=== PATIENT | male | born 1965 | race Caucasian/White ===

== ENCOUNTER 2020-01-10 16:33 | Emergency (ER) | payer OTHER ==
--- NOTE | 2020-01-10 18:19 | ER Document Report ---
ED Medical Screen (RME) - General Chief Complaint: Headache Stated Complaint: SEVERE MIGRANE Time Seen by Provider: 01/10/20 18:16 Mode of Arrival: Ambulatory Information source: Patient Notes: 54-year-old male presented to ED for headache. He states he has had this headache for the last several days. He states he was given some migraine medicine that has butalbital and the name that he has been taking. He states he woke up this morning with a severe headache and then had a colonoscopy with Dr. Ferrer this morning. He states he never told Dr. Laruent that he had a headache but he did tell the nurse. He states nothing was done about the headache at that time. He states he went home took his migraine medicine and for ibuprofen since the colonoscopy. He states that the pain is still severe so he came to the emergency room. He states in 2006 he came to the emergency room for headache and while he was being worked up for his headache they discovered he was having an NM and shipped him to [facility]. Patient is alert oriented respirations regular nonlabored speaking in full sentences. His phone number is in the chart. I have greeted and performed a rapid initial assessment of this patient. A comprehensive ED assessment and evaluation of the patient, analysis of test results and completion of medical decision making process will be conducted by an additional ED providers. TRAVEL OUTSIDE OF THE [place] IN LAST 30 DAYS: No - Related Data Allergies/Adverse Reactions: No Known Allergies Allergy (Verified 06/23/14 08:14) Past Medical History - Past Medical History Cardiac Medical History: Reports: Hx Heart Attack, Hx Hypertension Pulmonary Medical History: Reports: Hx Bronchitis, Hx Pneumonia Renal/ Medical History: Denies: Hx Kidney Stones GI Medical History: Reports: Hx Gastroesophageal Reflux Disease, Hx Ulcer Musculoskeltal Medical History: Reports Hx Arthritis, Reports Hx Musculoskeletal Trauma - fall several years ago Past Surgical History: Reports: Hx Cholecystectomy - Immunizations Hx Diphtheria, Pertussis, Tetanus Vaccination: Yes - 2011 Physical Exam - Vital signs Vitals: Temp Pulse Resp BP Pulse Ox 98.5 F 81 18 159/93 H 96 01/10/20 17:45 01/10/20 17:45 01/10/20 17:45 01/10/20 17:45 01/10/20 17:45 Course - Vital Signs Vital signs: Temp Pulse Resp BP Pulse Ox 98.5 F 81 18 159/93 H 96 01/10/20 17:45 01/10/20 17:45 01/10/20 17:45 01/10/20 17:45 01/10/20 17:45
--- NOTE | 2020-01-10 18:38 | RADIOLOGY REPORT (SQ) ---
EXAM DESCRIPTION: CT HEAD WITHOUT IMAGES COMPLETED DATE/TIME: 01/10/2020 6:29 pm REASON FOR STUDY: Severe headache blurry vision nausea COMPARISON: 08/03/2007 TECHNIQUE: Axial images acquired through the brain without intravenous contrast. Images reviewed wi th bone, brain and subdural windows. Additional sagittal and coronal reconstructions were generated. Images stored on PACS. All CT scanners at this facility use dose modulation, iterative reconstruction, and/or weight based d osing when appropriate to reduce radiation dose to as low as reasonably achievable (ALARA). [facility]: Dose Right [facility]: CareDose [facility]: Dose Right [facility]: Teradose 4D [facility]: [employer] RADIATION DOSE: mGy. LIMITATIONS: None. FINDINGS: VENTRICLES: Normal size and contour. CEREBRUM: No masses. No hemorrhage. No midline shift. No evidence for acute infarction. Normal gra y/white matter differentiation. No areas of low density in the white matter. CEREBELLUM: No masses. No hemorrhage. No alteration of density. No evidence for acute infarction. EXTRAAXIAL SPACES: No fluid collections. No masses. ORBITS AND GLOBE: No intra- or extraconal masses. Normal contour of globe without masses. CALVARIUM: No fracture. PARANASAL SINUSES: No fluid or mucosal thickening. SOFT TISSUES: No mass or hematoma. OTHER: No other significant finding. IMPRESSION: NORMAL BRAIN CT WITHOUT CONTRAST. EVIDENCE OF ACUTE STROKE: NO. COMMENT: Quality ID # [id number]: Final reports with documentation of one or more dose reduction techniques (e.g., Automated exposure control, adjustment of the mA and/or kV according to patient size, use of iterative reconstruction technique) TECHNICAL DOCUMENTATION: JOB ID: [id number] 2010 [employer]- All Rights Reserved Reading location - IP/workstation name: [email or web address]
--- NOTE | 2020-01-10 19:02 | EKG REPORT ---
SEVERITY:- OTHERWISE NORMAL ECG - SINUS RHYTHM BORDERLINE LEFT AXIS DEVIATION : Confirmed by: Lazaro Giron MD 10-Jan-2020 19:01:51
[2020-01-10 19:20] LABS: ABSOLUTE EOSINOPHILS # (AUTO) 0.1 10^3/uL (0.0-0.6); ABSOLUTE LYMPHOCYTES (AUTO) 1.4 10^3/uL (0.5-4.7); ABSOLUTE MONOCYTES (AUTO) 0.6 10^3/uL (0.1-1.4); ABSOLUTE NEUT (AUTO) 5.6 10^3/uL (1.7-8.2); BASOPHILS % (AUTO) 0.2 % (0-2); EOSINOPHILS % (AUTO) 1.2 % (0-6); HEMATOCRIT 48.6 % (37.9-51.0); HEMOGLOBIN 17.4 g/dL (13.5-17.0); LYMPHOCYTES % (AUTO) 17.6 % (13-45); MEAN CORPUSCULAR HEMOGLOBIN 30.4 pg (27.0-33.4); MEAN CORPUSCULAR HGB CONC 35.7 g/dL (32.0-36.0); MEAN CORPUSCULAR VOLUME 85 fl (80-97); MONOCYTES % (AUTO) 7.8 % (3-13); PLATELET COUNT 232 10^3/uL (150-450); RED BLOOD COUNT 5.71 10^6/uL (4.35-5.55); RED CELL DISTRIBUTION WIDTH 13.4 % (11.5-14.0); SEGMENTED NEUTROPHILS % (AUTO) 73.2 % (42-78); TOTAL CELLS COUNTED % (AUTO) 100 %; WHITE BLOOD COUNT 7.7 10^3/uL (4.0-10.5)
[2020-01-10 19:23] LABS: INTERNATIONAL RATION (INR) 1.01; PROTHROMBIN TIME 13.3 SEC (11.4-15.4)
[2020-01-10 19:24] LABS: PARTIAL THROMBOPLASTIN TIME 27.5 SEC (23.5-35.8)
[2020-01-10 19:38] LABS: ALBUMIN 4.7 g/dL (3.5-5.0); ALKALINE PHOSPHATASE 54 U/L (38-126); ANION GAP 10 (5-19); ASPARTATE AMINO TRANSFERASE 30 U/L (17-59); BILIRUBIN,TOTAL 0.6 mg/dL (0.2-1.3); BLOOD UREA NITROGEN 19 mg/dL (7-20); CALCIUM 9.7 mg/dL (8.4-10.2); CARBON DIOXIDE 26 mmol/L (22-30); CHLORIDE 101 mmol/L (98-107); CREATINE KINASE 103 U/L (55-170); GLUCOSE 129 mg/dL (75-110); POTASSIUM 3.7 mmol/L (3.6-5.0); TOTAL PROTEIN 7.7 g/dL (6.3-8.2)
[2020-01-10] MEDS ORDERED: NORMAL SALINE 1000 ML 1,000 ML IV ONE (19:39)
[2020-01-10] MEDS ORDERED: DIPHENHYDRAMINE HCL 50 MG/ML VIAL IV ONE (19:39)
[2020-01-10] MEDS ORDERED: METOCLOPRAMIDE HCL INJ/PF 10 MG/2 ML SDV IV ONE (19:39)
[2020-01-10] MEDS ORDERED: KETOROLAC TROMETHAMINE INJ/PF 30 MG/1 ML SDV IV ONE (19:39)
--- NOTE | 2020-01-10 19:50 | ER Document Report ---
ED General - General Chief Complaint: Headache Stated Complaint: SEVERE MIGRANE Time Seen by Provider: 01/10/20 18:16 Primary Care Provider: THANG ESCALERA MD [Primary Care Provider] - Follow up as needed Mode of Arrival: Ambulatory TRAVEL OUTSIDE OF THE [place] IN LAST 30 DAYS: No - HPI Notes: Patient is a 54-year-old male with a history of migraines who presents to the emergency department for evaluation of a headache. He states has had a headache nearly daily for the last several months. He had a colonoscopy this morning. He made the nurse aware that he had a mild headache. After sedation wore off, his headache got more severe. It is not the worst headache of his life, but he states is 1 of "the top 3." He has had headaches this severe in the past, and has had to come to the emergency department for treatment. He states morphine is usually very helpful. He has had some nausea but no associated emesis. His pain is worsened by bright lights and rapid movement, nothing seems to make it better. Patient further states he has some blurred vision, again not uncommon with his migraines. He has been to the ER in the past with migraines, and was found to be having a heart attack per the patient. He comes here for further evaluation. He denies any chest pain, shortness of breath. He has had no syncope. No diaphoresis. - Related Data Allergies/Adverse Reactions: No Known Allergies Allergy (Verified 06/23/14 08:14) Past Medical History - General Information source: Patient - Social History Smoking Status: Never Smoker Chew tobacco use (# tins/day): No Frequency of alcohol use: None Drug Abuse: None Family History: Reviewed & Not Pertinent Patient has homicidal ideation: No - Past Medical History Cardiac Medical History: Reports: Hx Heart Attack, Hx Hypertension Pulmonary Medical History: Reports: Hx Bronchitis, Hx Pneumonia Renal/ Medical History: Denies: Hx Kidney Stones GI Medical History: Reports: Hx Gastroesophageal Reflux Disease, Hx Ulcer Musculoskeletal Medical History: Reports Hx Arthritis, Reports Hx Musculoskeletal Trauma - fall several years ago Past Surgical History: Reports: Hx Cholecystectomy - Immunizations Hx Diphtheria, Pertussis, Tetanus Vaccination: Yes - 2011 Review of Systems - Review of Systems Neurological/Psychological: See HPI -: Yes All other systems reviewed and negative Physical Exam - Vital signs Vitals: Temp Pulse Resp BP Pulse Ox 98.5 F 81 18 159/93 H 96 01/10/20 17:45 01/10/20 17:45 01/10/20 17:45 01/10/20 17:45 01/10/20 17:45 - Notes Notes: This is a 54-year-old male who appears his stated age, no acute distress. He has sunglasses on, is clearly having increased pain with the lights on. Vital signs reviewed, please refer to chart. Head is normocephalic, atraumatic. Pupils equal round, reactive to light. Neck is supple without meningismus. Heart is regular rate and rhythm. Lungs are clear to auscultation bilaterally. Abdomen is soft, nontender, normoactive bowel sounds throughout. Extremities without cyanosis, clubbing. Posterior calves are nontender. Peripheral pulses are equal. Skin is warm and dry. Patient is awake, alert, oriented x3. Cranial nerves II - XII are grossly intact without focal neurological deficits. Strength is plus 5 out of 5 bilateral upper and lower extremities. Sensation is intact. Reflexes symmetrical. Intact [id number], rapid alternating movements, [id number]. Course - Re-evaluation Re-evalutation: 01/10/20 19:49 Patient presents to the emergency department for evaluation. He complains of a headache, but it is not the worst headache of his life. He has no focal neurological deficits. A CT scan is unremarkable. Cardiac work-up was started. EKG is unremarkable. Still awaiting troponin. At any rate, I will treat him for typical migraine. His hemoglobin is high, he might have some mild dehydration, I do believe IV fluids will be helpful as well. Patient is stable at this time, we will continue to monitor. 01/10/20 21:49 Patient feeling significantly improved after medication and IV fluids. I will send him home with some Zofran. I explained to him that I suspect he had a migraine, worsened by sedation as well as the dehydration from colonoscopy prep. I explained that he should drink some electrolyte solutions at home, Zofran as needed for nausea, and follow-up closely with his primary care provider. He is amenable to this plan was discharged. - Vital Signs Vital signs: Temp Pulse Resp BP Pulse Ox 98.2 F 76 14 132/89 H 95 01/10/20 20:16 01/10/20 20:16 01/10/20 20:16 01/10/20 20:16 01/10/20 20:16 - Laboratory Result Diagrams: 01/10/20 18:49 01/10/20 18:49 Laboratory results interpreted by me: 01/10/20 01/10/20 18:49 18:49 RBC 5.71 H Hgb 17.4 H Sodium 136.9 L Glucose 129 H - Diagnostic Test Radiology reviewed: Reports reviewed Radiology results interpreted by me: 01/10/20 19:[address] 01/10/20 18:21 IMPRESSION: NORMAL BRAIN CT WITHOUT CONTRAST. EVIDENCE OF ACUTE STROKE: NO. - EKG Interpretation by Me Additional EKG results interpreted by me: 01/10/20 19:49 Sinus mechanism with rate of 73 bpm. Normal axis and intervals. No acute ST changes concerning for ischemia or infarction. Discharge - Discharge Clinical Impression: Migraine Qualifiers: Migraine type: with aura Status migrainosus presence: with status migrainosus Intractability: not intractable Qualified Code(s): G43.101 - Migraine with aura, not intractable, with status migrainosus Condition: Stable Disposition: HOME, SELF-CARE Instructions: Antinausea Medication ([facility]), Headache ([facility]), Reglan ([facility]), Toradol Injection ([facility]) Additional Instructions: Rest, stay well-hydrated. Solution, such as Gatorade or Pedialyte, at home to stay hydrated. Zofran as needed for nausea. Follow-up with your primary care provider next week. Return to the emergency department with worsening or new concerning symptoms of any sort. Referrals: THANG ESCALERA MD [Primary Care Provider] - Follow up as needed
[2020-01-10] MEDS ORDERED: ONDANSETRON ODT 4 MG TAB (6 TAB/ER DISP) PO PRN (21:49)
[2020-01-10 22:18] VITALS: BP 122/89
== END 2020-01-10 22:19 | disposition home or self-care (01) ==
LOC: ER 16:33
DX: G43.101 Migraine with aura, not intractable, with status migrainosus (principal)
CPT/HCPCS: 93005; 99284; 96361; 96374; 96375; 36415; 82550; 85025; 85610; 85730; 80053; 84484; 70450; 93010; J1200; J1885; J2765; J7030